=== PATIENT | male | born 1965 | race Caucasian/White ===

== ENCOUNTER 2017-08-31 07:18 | Day surgery (SDC) | payer OTHER ==
[2017-08-31] MEDS ORDERED: SALINE FLUSH 10 ML DISP.SYRIN IVF ONE (08:00)
[2017-08-31] MEDS ORDERED: PROPOFOL 500 MG/50 ML VIAL IV ONE (08:00)
[2017-08-31] MEDS ORDERED: LACTATED RINGERS 1,000 ML IV.SOLN IV ONE (08:00)
[2017-08-31] MEDS ORDERED: LIDOCAINE HCL/PF 2% 100 MG/5 ML VIAL IJ ONE (08:00)
--- NOTE | 2017-09-01 09:59 | GI Report ---
REFERRING PHYSICIAN: Dr. Jeanine Velez PIANO REGULATOR: Osiel Young MD PROCEDURE MEDICATION: Propofol as per anesthesia. INDICATIONS: This is a 52-year-old man referred for a screening. He denies a family history of colorectal cancer. He is on no medications. PROCEDURE PERFORMED: Colonoscopy. PROCEDURE: An Olympus video colonoscope was advanced to the rectum and slowly advanced all the way to the cecum. The appendiceal orifice and terminal ileum were normal. On slow withdrawal, the cecum, ascending colon, and transverse colon with no obvious intraluminal lesions noted. The descending colon and sigmoid with no obvious intraluminal lesions noted. Retroflexion of the rectum was normal. Patient tolerated the procedure well. FINDINGS: Normal colon mucosa to the cecum. RECOMMENDATIONS: 1. A high-fiber diet. 2. Consider re-looking at his colon in 10 years or sooner if clinically indicated. CC: Dr. Jeanine REES
== END 2017-08-31 07:20 ==
LOC: OPSURG 07:18
PROVIDERS: ATTEND Internal Medicine Gastroenterology
DX: Z12.11 Encounter for screening for malignant neoplasm of colon (principal)
CPT/HCPCS: J2001; J2704; J7120; 45378; S1016